=== PATIENT | female | born 1990 | race Caucasian/White ===

== ENCOUNTER → 2016-09-27 | Outpatient (CLI) | payer MEDICAID | LOC: FIMAGING 15:05 | PROVIDERS: ATTEND Obstetrics & Gynecology | DX: O36.5930 Maternal care for other known or suspected poor fetal growth, third trimester, not applicable or unspecified (principal); Z3A.39 39 weeks gestation of pregnancy ==

== ENCOUNTER 2016-09-28 10:47 | Observation (INO) | payer MEDICAID | END 2016-09-28 12:24 | disposition home or self-care (01) | LOC: FLD 10:47 | PROVIDERS: ADMIT Obstetrics & Gynecology; ATTEND Obstetrics & Gynecology | DX: O99.89 Other specified diseases and conditions complicating pregnancy, childbirth and the puerperium (principal); Z3A.39 39 weeks gestation of pregnancy ==

== ENCOUNTER 2016-09-28 15:50 | Inpatient (IN) | payer MEDICAID ==
[2016-09-28] MEDS ORDERED: OXYTOCIN/RINGERS LACTATE 1,000 ML IV PRN (16:02)
[2016-09-28] MEDS ORDERED: TERBUTALINE SULFATE 1 MG/ML VIAL IV PRN (16:02)
[2016-09-28] MEDS ORDERED: LR 1,000 ML IV PRN (16:02)
[2016-09-28] MEDS ORDERED: EPSOM SALT 454 GM TP PRN (16:02)
[2016-09-28] MEDS ORDERED: OLIVE OIL 118 ML BTL MISC PRN (16:02)
[2016-09-28 16:29] LABS: % IMMATURE GRANULYOCYTES 0.8 % (0.0-1.1); ABSOLUTE IMMATURE GRANULOCYTES 0.16 10^3/uL (0.00-0.10); ADD DIFF? NO; ADD MORPH? NO; ADD SCAN? NO; ATYPICAL LYMPHOCYTE FLAG 0 (0-99); FRAGMENT RBC FLAG 0 (0-99); HEMATOCRIT 40.1 % (38.0-47.0); LEFT SHIFT FLG 0 (0-99); LIPEMIA HEMOLYSIS FLAG 90 (0-99); MEAN CELL HEMOGLOBIN 30.8 pg (27.9-34.1); MEAN CELL HEMOGLOBIN CONCENTR. 34.9 g/dL (32.4-36.7); MEAN CELL VOLUME 88.3 fL (81.5-99.8); MEAN PLATELET VOLUME 13.1 fL (8.7-11.7); PLATELET CLUMPS FLAG 10 (0-99); PLATELET COUNT 138 10^3/uL (150-400); RED BLOOD CELL COUNT 4.54 10^6/uL (4.18-5.33); RED CELL DISTRIBUTION WIDTH 12.4 % (11.5-15.2)
[2016-09-28] MEDS ORDERED: AMMONIA AROMATIC 1 EACH AMP IH ONE (16:50)
[2016-09-28] MEDS ORDERED: OXYTOCIN 10 UNIT/ML VIAL ONE (16:50)
[2016-09-28] MEDS ORDERED: OLIVE OIL 118 ML BTL ONE (16:50)
[2016-09-28] MEDS ORDERED: MISOPROSTOL 200 MCG TAB ONE ×2 (16:50→22:13)
[2016-09-28] MEDS ORDERED: LIDOCAINE 1% 300 MG/30 ML SDV ONE (16:50)
[2016-09-28] MEDS ORDERED: TERBUTALINE SULFATE 1 MG/ML VIAL ONE (16:50)
[2016-09-28] MEDS ORDERED: BUPIVACAINE 0.25% 30 ML SDV ONE (16:56)
[2016-09-28] MEDS ORDERED: fentaNYL 2MCG/ML/BUP 0.1% RTU 100 ML BAG EP ONE (16:56)
[2016-09-28] MEDS ORDERED: LR 500 ML IV SCH (18:00)
--- NOTE | 2016-09-28 18:41 | GHP ---
[f rep st] HISTORY AND PHYSICAL DATE OF ADMISSION: 09/28/2016 CHIEF COMPLAINT: Labor contractions. HISTORY OF PRESENT ILLNESS: The patient is a healthy 25-year-old, G1, P0, at 39 weeks' 2 days gestation by a 17-week ultrasound. She was evaluated on labor and delivery at 12:30 p.m. and was found to be 3 cm dilated. She had intermittent contractions. She was discharged at that time, and has now returned with more painful and regular contractions, and has progressed to 4 cm. She denies leaking fluid or vaginal bleeding. Her baby is active. She has had an uncomplicated with a negative quad screen and a normal anatomy ultrasound. She did present late to care at 17 weeks. She is Rh positive and immune to rubella. GBS negative. She declined the Tdap vaccine in this . PAST MEDICAL HISTORY: Noncontributory. PAST SURGICAL HISTORY: Noncontributory. MEDICATIONS: vitamins. ALLERGIES: Penicillin to which she gets hives, and shellfish to which she has tightening in her throat. SOCIAL HISTORY: She is . She works on a farm. She does not use tobacco , alcohol or drug products. REVIEW OF SYSTEMS: Negative apart from what is stated in HPI. LABS: Blood type O positive, antibody screen negative, Pap smear negative. She is not immune to varicella. She is immune to rubella, nonreactive to RPR, hep B surface antigen, HIV. Negative urine culture. Negative gonorrhea and chlamydia testing. Normal 1 hour Glucola. Recent hemoglobin of 13.7. GBS negative, as previously stated. OBJECTIVE: VITAL SIGNS: Blood pressure 107/73, pulse 78, temp 37.6. GENERAL: Alert, awake, in [id number] distress with contractions. RESPIRATORY: Respirations unlabored and clear. CARDIOVASCULAR: Regular rate and rhythm. Normal peripheral pulses. ABDOMEN: Gravid, soft, nontender. EFW 6 to 6-1/2 pounds. EXTREMITIES: No edema. VAGINAL: Sterile vaginal exam, 5-6 cm, 90% effaced, -1 station. Note, during the time that provider was performing sterile vaginal exam, there was a spontaneous rupture of membranes with thick meconium noted. STATUS: Baseline 140, mostly minimal variability with periods of moderate variability. During the period of minimal variability, a scalp stim was performed and was reactive. No accelerations, 1 deceleration noted immediately after the bag of water was broken. This was initially a variable followed by a spontaneous deceleration down to the 90s for 1 minute and then resolved after position change. ASSESSMENT AND PLAN: The patient is a 25-year-old 1, para 0, at 39 weeks' 2 days in active labor. She was initially 3 cm, and then re-presented to the hospital at 4, and now is 5-6 cm. During time of cervical check and scalp stimulation, she had rupture of membranes and thick meconium was noted. status is overall reassuring with periods of moderate variability and no significant decelerations. She does have periods of minimal variability but they are associated with a positive scalp stim. Will plan to admit to labor and delivery. She has already received an epidural for pain management and is comfortable. Will plan continuous monitoring and plan routine intrapartum care. /[id number]/MODL MTDD
[2016-09-28] MEDS ORDERED: ACETAMINOPHEN 325 MG TAB PO PRN (20:31)
[2016-09-28] MEDS ORDERED: HYDROCORTISONE 0.5% CREAM TP PRN (20:31)
[2016-09-28] MEDS ORDERED: SIMETHICONE 80 MG TAB CHEW PO PRN (20:31)
--- NOTE | 2016-09-28 20:35 | OBPROC ---
- Labor and Delivery Onset of Contractions Date: 09/28/16 Onset of Contractions Time: 11:00 Onset of Contractions Type: Spontaneous Rupture of Membranes Date: 09/28/16 Rupture of Membranes Type: Spontaneous Amniotic Fluid Color: Meconium Stained-Heavy Delivery Type: Spontaneous Placenta Delivery Date: 09/28/16 Episiotomy/Laceration: Other (Specify) (small left labial) Repair: 4-0 EBL: 250 Complications: Nuchal Cord (tight, clamped and cut on perineum) - Medications Labor Augmentation/Induction Meds Used: None Anesthesia: Epidural - [place] Info Infant A Delivery Date: 09/28/16 Delivery Time: 20:01 Sex of : Female Score (1 Min): 8 Score (5 Min): 9 (Patient felt pressure and baby was found to be C/C/+3. WRAPAROUND FACILITATOR called to bedside for known meconium. Pushed over the course of 4 contractions and delivered in BROOKS presentation. Tight nuchal cord was doubly clamped and cut on perineum. Anterior shoulder and remainder of baby was then easily delivered. Baby briefly needed suctioning and resusitation and was then brought back for skin to skin. IV pitocin 20 units started. Placenta delivered easily with fundal massage and gentle cord traction. Uterus firm. Small left labial laceration repaired with 2 figure of eight suture of 4-0 vicryl. Pt and baby in good condition.)
[2016-09-28] MEDS: IBUPROFEN 600 MG TAB PO PRN (20:36)
[2016-09-28] MEDS ORDERED: OXYTOCIN/RINGERS LACTATE 1,000 ML IV SCH (21:00)
[2016-09-28] MEDS ORDERED: MISOPROSTOL 200 MCG TAB PO ONE (22:15)
[2016-09-29] MEDS: IBUPROFEN 600 MG TAB PO PRN ×4 (04:20→23:42)
--- NOTE | 2016-09-29 08:53 | SOAPPROG ---
SOAP Progress Note Assessment/Plan: Assessment: 25 y.o. s/p PPD#1. Recovering well with good pain control. . Appropriate mood. Plan: Routine care. consult. Anticipate discharge to home tomorrow. 09/29/16 08:51 Subjective: Reports feeling well with good pain control and minimal vaginal bleeding. . Eating and drinking well without nausea or vomiting. Ambulating well without vertigo. Appropriate mood with good support system. Objective: Vital Signs Temp Pulse Resp BP Pulse Ox 36.8 C 79 16 119/82 H 94 09/29/16 02:25 09/29/16 00:00 09/29/16 00:00 09/29/16 00:00 09/29/16 00:00 Laboratory Results 09/28/16 16:00 09/28/16 09/29/16 09/30/16 05:59 05:59 05:59 Intake Total 450 Output Total 250 Balance 200 - Time Spent With Patient Time Spent With Patient: 20 minutes - Pending Discharge Pending Discharge Within 24 Hours: Yes Pending Discharge Date: 09/30/16 Pending Discharge Time: 11:00 Physical Exam - Physical Exam General Appearance: WD/WN, alert, no apparent distress EENT: normal ENT inspection Neck: non-tender, full range of motion, normal inspection Respiratory: lungs clear, normal breath sounds Cardiac/Chest: regular rate, rhythm Abdomen: non-tender, soft Pelvic Exam: normal external exam Rectal: deferred Back: Normal inspection Skin: normal color, warm/dry Lymphatic: no adenopathy Extremities: normal range of motion, non-tender, normal inspection Neuro/Psych: alert, normal mood/affect, oriented x 3 ICD10 Worksheet Patient Problems: Problems Problem Status Onset EARLY LABOR Acute
[2016-09-29 22:16] VITALS: O2SAT 97
[2016-09-29] MEDS: DOCUSATE SODIUM 100 MG CAP PO PRN (23:42)
--- NOTE | 2016-09-30 08:28 | OBGCSDC ---
General Delivery Information - General Info : 1 Para: 1 Delivery Physician/CNM: Carolyn Suarez Admission Date: 09/28/16 Labs: Patient ABO/Rh O POSITIVE 09/28/16 16:00 Hct 40.1 % (38.0-47.0) 09/28/16 16:00 Vaginal - Diagnosis Labor: Spontaneous Rupture of Membranes Type: Spontaneous Amniotic Fluid Color: Meconium Stained Laceration: Other (Specify) (left labial laceration) Repair: 4-0 Delivery Events: None - Operations/Procedures L&D Analgesia/Anesthesia Type: Epidural - Delivery L&D Analgesia/Anesthesia Type: Epidural Data [place] Delivery Date: 09/28/16 Delivery Time: 20:01 LYNDSEY: 10/03/16 Gestational Age: 39 week(s) and 4 day(s) Sex of Infant: Female Weight (gm): 0 g Score (1 Min): 7 Score (5 Min): 8 Discharge Information - Discharge Information Discharge Medications: Ibuprofen, Oxycodone, Vitamins Condition: Good Instruction/Follow Up: Six Weeks Discharge Physician/CNM: Tsering Carpenter
[2016-09-30] MEDS: DOCUSATE SODIUM 100 MG CAP PO PRN (08:47)
[2016-09-30] MEDS: IBUPROFEN 600 MG TAB PO PRN ×2 (08:47→16:02)
[2016-09-30 10:04] VITALS: BP 114/76; PULSE 96; RESP 18; TEMP 97.7
== END 2016-09-30 17:10 | disposition home or self-care (01) | DRG 775 ==
LOC: FLD 15:50 → FOB 22:45
PROVIDERS: ADMIT Obstetrics & Gynecology; ATTEND Obstetrics & Gynecology
PROC: 0HQ9XZZ Repair Perineum Skin, External Approach (ICD-10-PCS; principal; 2016-09-28)
PROC: 10E0XZZ Delivery of Products of Conception, External Approach (ICD-10-PCS; principal; 2016-09-28)
DX: O77.0 Labor and delivery complicated by meconium in amniotic fluid (principal); O69.1XX0 Labor and delivery complicated by cord around neck, with compression, not applicable or unspecified; O70.0 First degree perineal laceration during delivery; Z3A.39 39 weeks gestation of pregnancy; Z37.0 Single live birth
CPT/HCPCS: J2590; J3105

== ENCOUNTER 2017-02-07 15:23 | Emergency (ER) | payer MEDICAID ==
[2017-02-07 15:40] VITALS: BP 125/74; RESP 16
--- NOTE | 2017-02-07 16:51 | EDPHY ---
H & P Time Seen by Provider: 02/07/17 16:34 HPI/ROS: CHIEF COMPLAINT: Left ear hurting HISTORY OF PRESENT ILLNESS: 26-year-old female who had a cold last week consisting of nasal congestion, sore throat now presents complaining of pain in left ear. No fever. No trauma. No drainage from the ear. No sore throat. REVIEW OF SYSTEMS: Aside from elements discussed in the HPI, a comprehensive 10-point review of systems was reviewed and is negative. PAST MEDICAL HISTORY: Denies. 4 months . has not had any illness. SOCIAL HISTORY: Nonsmoker. VITAL SIGNS: see nurse's notes. GENERAL: Well-developed, well-nourished, in no acute distress. HEENT: Atraumatic Eyes: PERRL, EOMI, no conjunctival injection. Ears: Right TM occluded with impacted cerumen. Left TM partially occluded with cerumen. Area of tympanic membrane which is visible appears normal. Nose: No discharge. Mouth: moist mucous membranes. Pharynx: no erythema, no exudates , no swelling, no abscess. Uvula is midline. NECK: Supple, no adenopathy, no meningismus, no tenderness. Negative Kernig's and Brudzinski's. LUNGS: Clear to auscultation. CARDIAC: Regular rate and rhythm, no rubs, murmurs or gallops. ABDOMEN: Soft, nontender, bowel sounds normal. EXTREMITIES: Normal, no edema, FROM. NEURO: Alert and oriented, grossly nonfocal. SKIN: Warm and dry, no rash. PSYCHIATRIC: Normal mentation, no agitation. Smoking Status: Former smoker Constitutional: Initial Vital Signs Temperature (C) 36.8 C 02/07/17 15:38 Heart Rate 85 02/07/17 15:38 Respiratory Rate 16 02/07/17 15:38 Blood Pressure 125/74 H 02/07/17 15:38 O2 Sat (%) 94 02/07/17 15:38 O2 Delivery Mode Room Air Allergies/Adverse Reactions: Penicillins Allergy (Verified 02/07/17 15:37) Hives shellfish derived Allergy (Verified 02/07/17 15:37) Swelling/neck,face,throat Home Medications: Medication Instructions Recorded Vit27&Calcium/Iron/FA 1 each PO DAILY 09/28/16 [] AZITHROMYCIN [Z-PACK] 250 - 500 mg PO DAILY #6 tab 02/07/17 MDM/Departure - [facility] ED Course/Re-evaluation: 26-year-old female with an earache several days after having a upper respiratory infection. TMs are somewhat occluded. Patient was discharged with information regarding decongestants, debrox, and a prescription for azithromycin. Please see aftercare instructions. Differential Diagnosis: Differential diagnosis for the patient's primary complaint was considered including but not limited to otitis media, otitis externa, foreign body, perforated tympanic membrane. - Depart Disposition: Home, Routine, Self-Care Clinical Impression: Ear pain, left Condition: Good Instructions: Carbamide Peroxide (Into the ear), Otitis Media (ED), Earache (ED ) Additional Instructions: I am unable to visualize your ear drum. I suggest that you begin taking [id number] decongestant to relieve any pressure in the inner ear. You may use Afrin nasal spray at night. I also recommend Flonase nasal spray for the next 2-3 days. I would recommend Debrox which is an [id number] ear wax removal solution. You been given a prescription for azithromycin. You may begin taking this if your ear pain is not improved with the above treatment over the next 24-48 hours. Prescriptions: AZITHROMYCIN [Z-PACK] 250 - 500 mg PO DAILY #6 tab Referrals: NONE *PRIMARY CARE P,. [Primary Care Provider] - As per Instructions
[2017-02-07 17:22] VITALS: PULSE 84; TEMP 98.4; O2SAT 96
== END 2017-02-07 17:21 | disposition home or self-care (01) ==
DX: H92.02 Otalgia, left ear (principal); Z87.891 Personal history of nicotine dependence